=== PATIENT | male | born 1990 | race Caucasian/White ===

== ENCOUNTER 2022-10-29 05:41 | Emergency (ER) | payer SELFPAY ==
[~2022-10-29] VITALS: Ht 185.4 cm; Wt 82.4 kg
--- NOTE | 2022-10-29 05:55 | ED EENT ---
History of Present Illness General Chief Complaint: Dental Problems/Pain Stated Complaint: MOUTH PAIN History of Present Illness Date Seen by Provider: Oct 29, 2022 Time Seen by Provider: 05:52 Initial Comments 32-year-old male is here with complaints of a painful spot behind his tooth along the gumline and soft palate. The pain has been going on for the past couple of days. Denies fever, discharge. Allergies and Home Medications Allergies Coded Allergies: No Known Drug Allergies (Unverified , 10/29/22) Patient Home Medication List Home Medication List Reviewed: Yes Review of Systems Review of Systems Constitutional: no symptoms reported Mouth: pain Physical Exam Height, Weight, BMI Height: '" Weight: lbs. oz. kg; BMI Method: General Appearance: WD/WN, mild distress Mouth/Throat: normal mouth inspection, other (No dental caries, appears to have good oral hygiene. There is a tender spot on the hard palate along the gumline behind the left incisor tooth ) Neck: non-tender, full range of motion Neurologic/Psychiatric: alert, oriented x 3 Skin: normal color Progress/Results/Core Measures Progress Progress Note : Progress Note 1. CANKER SORE : - Toradol im given in ER - Follow up with dentist BHARAT Departure Impression Primary Impression: Canker sores oral Disposition: HOME, SELF-CARE Condition: Stable Departure-Patient Inst. Referrals: NO,LOCAL PHYSICIAN (PCP/Family) Primary Care Physician Patient Instructions: Mouth Sores (DC) Add. Discharge Instructions: Follow-up with dentist as soon as possible. All discharge instructions reviewed with patient and/or family. Voiced understanding. GERALD POON MD Oct 29, 2022 05:55
[2022-10-29] MEDS ORDERED: KETOROLAC 30 MG/ML VIAL ONE (06:07)
[2022-10-29] MEDS ORDERED: KETOROLAC 30 MG/ML VIAL IM ONE (06:15)
[2022-10-29 06:23] VITALS: BP 162/99
== END 2022-10-29 06:23 | disposition home or self-care (01) ==
LOC: ER FS 05:45
DX: K12.0 Recurrent oral aphthae (principal); Z28.311 Partially vaccinated for COVID-19
CPT/HCPCS: 99284